=== PATIENT | female | born 1945 | race Caucasian/White ===

== ENCOUNTER 2018-10-22 08:31 | Day surgery (SDC) | payer OTHER ==
[2018-10-22 09:15] VITALS: BMI 19.5
[2018-10-22 10:43] VITALS: TEMP 98.6
[2018-10-22 11:20] VITALS: BP 111/61; PULSE 58
== END 2018-10-22 11:20 | disposition home or self-care (01) ==
LOC: JASU-ENDO 08:31
PROVIDERS: ATTEND Internal Medicine Gastroenterology
PROC: 0DJD8ZZ Inspection of Lower Intestinal Tract, Via Natural or Artificial Opening Endoscopic (ICD-10-PCS; principal; 2018-10-22 09:45)
DX: Z86.010 Personal history of colon polyps (principal); K57.30 Diverticulosis of large intestine without perforation or abscess without bleeding; K62.89 Other specified diseases of anus and rectum; Q43.8 Other specified congenital malformations of intestine; J44.9 Chronic obstructive pulmonary disease, unspecified

== ENCOUNTER 2022-07-01 11:24 | Day surgery (SDC) | payer OTHER, MEDICARE ==
[2022-07-01] MEDS ORDERED: DENOSUMAB 60 MG/ML DISP.SYRIN SQ ONE (11:30)
[2022-07-01 12:08] VITALS: BP 152/78; PULSE 73; RESP 15; TEMP 97.5
== END 2022-07-01 12:12 | disposition home or self-care (01) ==
LOC: FINFUSION 11:24 → FM/S 11:27 → FINFUSION 12:12
PROVIDERS: ATTEND Internal Medicine Endocrinology, Diabetes & Metabolism
PROC: 3E013GC Introduction of Other Therapeutic Substance into Subcutaneous Tissue, Percutaneous Approach (ICD-10-PCS; principal; 2022-07-01)
DX: M81.0 Age-related osteoporosis without current pathological fracture (principal)
CPT/HCPCS: 96372; J0897

== ENCOUNTER 2023-07-16 11:16 | Day surgery (SDC) | payer OTHER, MEDICARE ==
[2023-07-16] MEDS: DENOSUMAB 60 MG/ML DISP.SYRIN SQ ONE (11:49)
[2023-07-16 12:08] VITALS: BP 140/52; PULSE 67; RESP 18; TEMP 97.7
== END 2023-07-16 12:14 | disposition home or self-care (01) ==
LOC: FINFUSION 11:16 → FM/S 11:18 → FINFUSION 12:14
PROVIDERS: ATTEND Internal Medicine Endocrinology, Diabetes & Metabolism
PROC: 3E013GC Introduction of Other Therapeutic Substance into Subcutaneous Tissue, Percutaneous Approach (ICD-10-PCS; principal; 2023-07-16)
DX: M81.0 Age-related osteoporosis without current pathological fracture (principal)
CPT/HCPCS: 96372; J0897

== ENCOUNTER 2024-02-15 11:53 | Day surgery (SDC) | payer OTHER, MEDICARE ==
[2024-02-15] MEDS: DENOSUMAB 60 MG/ML DISP.SYRIN SQ ONE (12:13)
[2024-02-15 12:18] VITALS: BP 130/67; PULSE 73; RESP 16; TEMP 97.3
== END 2024-02-15 12:19 | disposition home or self-care (01) ==
LOC: FINJECTION 11:53 → FM/S 11:56 → FINJECTION 12:19
PROVIDERS: ATTEND Internal Medicine Endocrinology, Diabetes & Metabolism
PROC: 3E013GC Introduction of Other Therapeutic Substance into Subcutaneous Tissue, Percutaneous Approach (ICD-10-PCS; principal; 2024-02-15)
DX: M81.0 Age-related osteoporosis without current pathological fracture (principal)
CPT/HCPCS: 96372; J0897

== ENCOUNTER 2024-09-20 10:02 | Day surgery (SDC) | payer OTHER, MEDICARE ==
[2024-09-20 10:23] VITALS: BP 123/83; PULSE 71; RESP 17; TEMP 97.9
[2024-09-20] MEDS: DENOSUMAB 60 MG/ML DISP.SYRIN SQ ONE (10:36)
== END 2024-09-20 11:49 | disposition home or self-care (01) ==
LOC: FINJECTION 10:02 → FM/S 10:07 → FINJECTION 11:49
PROVIDERS: ATTEND Internal Medicine Endocrinology, Diabetes & Metabolism
PROC: 3E013GC Introduction of Other Therapeutic Substance into Subcutaneous Tissue, Percutaneous Approach (ICD-10-PCS; principal; 2024-09-20)
DX: M81.0 Age-related osteoporosis without current pathological fracture (principal)
CPT/HCPCS: 96372; J0897